=== PATIENT | male | born 1970 | race Hispanic/Latino ===

== ENCOUNTER 2017-07-01 01:20 | Inpatient (IN) | payer OTHER ==
[2017-07-01] VITALS (11 sets, daily range): BP systolic 108–139; BP diastolic 54–88
[~2017-07-01] VITALS: Ht 170.2 cm; Wt 103.3 kg
[~2017-07-01 01:20] MED LIST: ASPI-555 PO; CLOP75TA14 PO; IBUP-2353 PO; METOPROLOL ER PO; NITR0.4T50 SL; SIMV40TA5 PO; TRAM50TA4 PO
[2017-07-01] MEDS ORDERED: MUPI22OI2 TP (04:48)
[2017-07-01] MEDS ORDERED: CETI10TA57 PO (04:48)
[2017-07-01] MEDS ORDERED: GABA-529 PO (04:48)
[2017-07-01] MEDS ORDERED: SULF1TAB42 PO (04:48)
[2017-07-01 05:29] LABS: INR 0.96 (0.85-1.15); PARTIAL THROMBOPLASTIN TIME 24.6 SEC (26.3-35.5); PROTHROMBIN TIME 10.1 SEC (9.6-11.6)
[2017-07-01 09:02] LABS: HEMATOCRIT 43.7 % (42-54); MEAN CORPUSCULAR HEMOGLOBIN 28.6 pg (27.0-33.0); MEAN CORPUSCULAR HGB CONC 33.9 g/dL (32.0-36.0); MEAN CORPUSCULAR VOLUME 84.4 fL (79-99); PLATELET COUNT (AUTO) 309 K/uL (130-400); RED BLOOD CELL COUNT(AUTO) 5.17 MIL/uL (4.50-6.20); RED CELL DISTRIBUTION WIDTH 13.8 % (11.0-15.5); WHITE BLOOD COUNT (AUTO) 6.9 K/uL (4.8-10.8)
[2017-07-01 09:17] LABS: ALBUMIN 4.1 g/dL (3.5-5.0); BILIRUBIN,TOTAL 0.5 mg/dL (0.2-1.0); CREATININE 1.1 mg/dL (0.5-1.5); POTASSIUM 4.5 mmol/L (3.5-5.1); TOTAL PROTEIN, SERUM 7.6 g/dL (6.0-8.3)
[2017-07-01 10:08] LABS: EOSINOPHILS % (MANUAL) 1 % (1-6); LYMPHOCYTES % (MANUAL) 30 % (22-44); MAN.DIFF COMMENT-IMPRESSION MANUAL DIFFERENTIAL; MONOCYTES % (MANUAL) 12 % (2-9); PLATELET MORPHOLOGY COMMENT ADEQUATE; SEGMENTED NEUTROPHILS % 57 % (40-70)
[2017-07-01] MEDS ORDERED: HEPARIN SODIUM 1000UNIT/ML 10ML VIAL ONE (12:19)
[2017-07-01] MEDS ORDERED: NITROGLYCERIN 5 MG/ML 10 ML VIAL IV ONE (12:19)
[2017-07-01] MEDS ORDERED: LIDOCAINE HCL 2% 20ML ONE (12:19)
[2017-07-01] MEDS ORDERED: IOPAMIDOL-370 100 ML VIAL IV ONE (12:19)
[2017-07-01] MEDS ORDERED: ISOVUE-370 50ML VIAL IV ONE (12:19)
[2017-07-01] MEDS ORDERED: BIVALIRUDIN 250 MG/VIAL IV ONE (12:35)
[2017-07-01] MEDS ORDERED: SODIUM CHLORIDE 0.9% 1000ML 1,000 ML IV SCH (12:58)
[2017-07-01] MEDS ORDERED: HYDRALAZINE HCL 20 MG/ML VIAL IV PRN (13:00)
[2017-07-01] MEDS ORDERED: ACETAMINOPHEN-CODEINE 300/30MG TAB PO PRN (13:00)
[2017-07-01] MEDS ORDERED: METOPROLOL TARTRATE 1 MG/ML 5ML VIAL IV PRN (13:00)
[2017-07-01] MEDS ORDERED: NITROGLYCERIN 0.4 MG SL TAB SL PRN (13:00)
[2017-07-01] MEDS ORDERED: ACETAMINOPHEN 325 MG TAB PO PRN (16:30)
== END 2017-07-01 18:40 | disposition home or self-care (01) | DRG 287 ==
LOC: 2CH 02:17
PROVIDERS: ADMIT Family Medicine; ATTEND Family Medicine
PROC: 4A023N7 Measurement of Cardiac Sampling and Pressure, Left Heart, Percutaneous Approach (ICD-10-PCS; principal; 2017-07-01)
PROC: B2111ZZ Fluoroscopy of Multiple Coronary Arteries using Low Osmolar Contrast (ICD-10-PCS; 2017-07-01)
PROC: B2151ZZ Fluoroscopy of Left Heart using Low Osmolar Contrast (ICD-10-PCS; 2017-07-01)
DX: I25.10 Atherosclerotic heart disease of native coronary artery without angina pectoris (principal)
CPT/HCPCS: 36415; 80053; 82948; 85025; 85610; 85730; 93458; C1760; C1894; J0583; J1644; J3490; Q9967